=== PATIENT | male | born 1940 | race Caucasian/White ===

== ENCOUNTER 2019-04-23 08:50 | Outpatient (CLI) | payer MEDICARE, OTHER, SELFPAY ==
--- NOTE | 2019-04-23 09:30 | XRR_ITS ---
PROCEDURE INFORMATION: Exam: XR Abdomen, 1 View Exam date and time: 04/23/2019 9:24 AM Age: 79 years old Clinical indication: Condition or disease; Other: Kidney stone; Prior surgery; Surgery date: 6+ months TECHNIQUE: Imaging protocol: XR of the abdomen. Views: Frontal supine view of the abdomen. 1 View. COMPARISON: No relevant prior studies available. FINDINGS: Gastrointestinal tract: Normal. No bowel dilation. Bones/joints: No acute findings. Soft tissues: No definite urinary tract calculi. XR/XR KUB [id number] IMPRESSION: No acute findings.
== END 2019-04-23 08:51 | disposition home or self-care (01) ==
LOC: RAD 08:57
PROVIDERS: Family Provider Nurse Practitioner Family; PCP Family Medicine; Visit Provider Urology
DX: N20.0 Calculus of kidney (principal); R97.20 Elevated prostate specific antigen [PSA]
CPT/HCPCS: 74018; 81001; 84153

== ENCOUNTER 2020-10-07 08:23 | Outpatient (CLI) | payer MEDICARE, OTHER, SELFPAY ==
--- NOTE | 2020-10-07 08:45 | XR_ITS ---
WS: [id number] Exam: XR KUB [id number] Date/Time of Exam: 10/07/2020 8:35 AM Reason For Exam: HEMATURIA No bowel obstruction or free air. No calcifications identified in the region of the kidneys. A soft t issue mass superimposes the mid pole the left kidney and apparently represents the patient's known pr ominent left renal cyst. Regional bony elements are intact. Organ margins are otherwise normal in eli earance. XR/XR KUB [id number] IMPRESSION: 1. No calcifications noted in the region of the kidneys. 2. Soft tissue mass superimposes the mid pole the left kidney and apparently co rresponds to the patient's known left renal cyst.
== END 2020-10-07 08:24 | disposition home or self-care (01) ==
PROVIDERS: PCP Family Medicine; Visit Provider Urology
DX: N20.1 Calculus of ureter (principal); R97.20 Elevated prostate specific antigen [PSA]
CPT/HCPCS: 74018; 84153; 87086

== ENCOUNTER 2020-12-11 08:52 | Outpatient (CLI) | payer MEDICARE, OTHER, SELFPAY ==
--- NOTE | 2020-12-11 10:15 | US_ITS ---
WS: [id number] RENAL ULTRASOUND HISTORY: URETERAL CALCULUS COMPARISON: None available. TECHNIQUE: 2-D and color Doppler imaging of the kidney submitted. Right kidney: 12.3 cm x 6.1 cm x 4.5 cm. Normal echogenicity with no hydronephrosis or mass. Left kidney: 11.7 cm x 6.5 cm x 5.1 cm. Normal size LEFT kidney. Simple cyst upper pole measures 4.8 x 6.1 x 4.4 cm. No solid mass or obstruc tion. Aorta: Minimal visualization. No abnormality. Urinary Bladder: Well-distended urinary bladder. Prostate gland is enlarged and lobulated encroaching into the posterior bladder. Prostate measures 4.6 x 5.1 x 5.7 cm and is heterogeneous. There is a sm all bladder diverticulum on the RIGHT with a maximum diameter of 1.0 cm. US/US renal BI* [id number] IMPRESSION: 1. No renal obstruction. 2. Moderate-sized LEFT renal cyst. 3. Prostate gland enlargement encroaching into the urinary bladder. 4. Very small RIGHT bladder diverticulum.
== END 2020-12-11 08:53 | disposition home or self-care (01) ==
PROVIDERS: PCP Family Medicine; Visit Provider Urology
DX: N20.1 Calculus of ureter (principal); Q61.01 Congenital single renal cyst; N40.0 Benign prostatic hyperplasia without lower urinary tract symptoms; N32.3 Diverticulum of bladder
CPT/HCPCS: 76770

== ENCOUNTER 2021-12-10 08:58 | Outpatient (CLI) | payer MEDICARE, OTHER, SELFPAY ==
--- NOTE | 2021-12-10 09:50 | XR_ITS ---
WS: [id number] Exam: XR KUB [id number] Date/Time of Exam: 12/10/2021 9:50 AM Reason For Exam: Urolithiasis No bowel obstruction or free air. No suspicious calcifications seen in the region of the kidneys. No sign of organ enlargement. Degenerative changes of the lumbar spine. XR/XR KUB [id number] IMPRESSION: 1. No acute abdominal process identified.
== END 2021-12-10 08:59 | disposition home or self-care (01) ==
LOC: RAD 08:59
PROVIDERS: PCP Family Medicine; Visit Provider Urology
DX: N20.1 Calculus of ureter (principal); N20.9 Urinary calculus, unspecified; N40.1 Benign prostatic hyperplasia with lower urinary tract symptoms; N39.43 Post-void dribbling
CPT/HCPCS: 74018; 81003; 99213

== ENCOUNTER → 2024-04-19 13:48 | Outpatient (BNVA) | payer MEDICARE, OTHER, SELFPAY | PROVIDERS: PCP Family Medicine; Visit Provider Nurse Practitioner Family | DX: D69.2 Other nonthrombocytopenic purpura (principal); L82.1 Other seborrheic keratosis; Z85.820 Personal history of malignant melanoma of skin; Z08 Encounter for follow-up examination after completed treatment for malignant neoplasm; Z85.828 Personal history of other malignant neoplasm of skin; D48.5 Neoplasm of uncertain behavior of skin; L57.0 Actinic keratosis | CPT/HCPCS: 11102; 17000; 99203 ==

== ENCOUNTER → 2024-09-17 14:59 | Outpatient (BNVA) | payer MEDICARE, OTHER, SELFPAY | PROVIDERS: PCP Family Medicine; Visit Provider Nurse Practitioner Family | DX: L29.89 Other pruritus (principal); L72.0 Epidermal cyst; L81.4 Other melanin hyperpigmentation; L57.8 Other skin changes due to chronic exposure to nonionizing radiation; Z85.820 Personal history of malignant melanoma of skin; Z08 Encounter for follow-up examination after completed treatment for malignant neoplasm; Z85.828 Personal history of other malignant neoplasm of skin; L82.0 Inflamed seborrheic keratosis; R20.8 Other disturbances of skin sensation; L53.8 Other specified erythematous conditions; R58 Hemorrhage, not elsewhere classified; Z78.9 Other specified health status; D48.5 Neoplasm of uncertain behavior of skin; L57.0 Actinic keratosis | CPT/HCPCS: 11102; 17000; 17110; 99214 ==